=== PATIENT | male | born 1985 | race Caucasian/White ===

== ENCOUNTER 2018-07-25 11:55 | Emergency (ER) | payer OTHER ==
--- NOTE | 2018-07-25 12:24 | C.PDOC ---
History Of Present Illness 32 y/o male presents to the ED stating I feel like Im choking since this morning. Patient reports he ate a cookie and eggs this morning for breakfast. Approximately 1 hour later he developed the choking sensation and felt like so mething was coming back up similar to episodes of reflux. He denies any vomiting or fever. Patient then touched his chest and developed palpitations, he reports my heart started racing. He did not take any medications prior to arrival. Patient denies any known PMHx. Denies any chest pain, dizziness, diaphoresis, or other complaints. <Xiomara Rivers - Last Filed: 07/25/18 12:58> History Per: Patient History/Exam Limitations: no limitations Onset/Duration Of Symptoms: Hrs Current Symptoms Are (Timing): Still Present <Xiomara Rivers - Last Filed: 07/25/18 12:58> <Severo Reed - Last Filed: 07/25/18 14:55> Time Seen by Provider: 07/25/18 12:17 Chief Complaint (Nursing): Palpitations Past Medical History Reviewed: Historical Data, Nursing Documentation, Vital Signs Vital Signs: Last Vital Signs Temp 97.5 F L 07/25/18 12:14 Pulse 114 H 07/25/18 12:14 Resp 26 H 07/25/18 12:14 BP 153/77 H 07/25/18 12:14 Pulse Ox 100 07/25/18 12:14 - Medical History PMH: No Chronic Diseases Family History: States: No Known Family Hx - Social History Hx Alcohol Use: No Hx Substance Use: Yes (smokes marijuana) - Immunization History Hx Tetanus Toxoid Vaccination: No Hx Influenza Vaccination: No Hx Pneumococcal Vaccination: No <Xiomara Rivers - Last Filed: 07/25/18 12:58> Vital Signs: Last Vital Signs Temp 97.5 F L 07/25/18 12:14 Pulse 88 07/25/18 14:47 Resp 16 07/25/18 14:47 BP 111/72 07/25/18 14:47 Pulse Ox 100 07/25/18 14:47 <Severo Reed - Last Filed: 07/25/18 14:55> Review Of Systems Constitutional: Negative for: Fever, Chills Eyes: Negative for: Vision Change ENT: Positive for: Other (Throat: choking sensation, "feels like something is coming up") Cardiovascular: Positive for: Palpitations. Negative for: Chest Pain Respiratory: Negative for: Cough, Shortness of Breath Gastrointestinal: Negative for: Nausea, Vomiting, Abdominal Pain, Diarrhea Musculoskeletal: Negative for: Neck Pain, Back Pain Neurological: Negative for: Weakness, Dizziness <Xiomara Rivers - Last Filed: 07/25/18 12:58> Physical Exam - Physical Exam Appears: Non-toxic, No Acute Distress, Other (Appears anxious) Skin: Normal Color, Warm, Dry Head: Atraumatic, Normacephalic Eye(s): bilateral: Normal Inspection, PERRL, EOMI Oral Mucosa: Moist Throat: Normal, No Erythema, No Drooling, Other (Patent airway, uvula midline) Neck: Normal ROM, Supple Chest: Symmetrical, No Deformity, No Tenderness Cardiovascular: Rhythm Regular (Tachycardic) Respiratory: Normal Breath Sounds, No Accessory Muscle Use, No Rales, No Rhonchi, No Wheezing, Other (NARD) Gastrointestinal/Abdominal: Soft, No Tenderness, No Distention Extremity: Bilateral: Atraumatic, Normal Color And Temperature, Normal ROM Pulses: Left Radial: Normal, Right Radial: Normal Neurological/Psych: Oriented x3, Normal Speech Gait: Steady <Xiomara Rivers Last Filed: 07/25/18 12:58> ED Course And Treatment - Laboratory Results Result Diagrams: 07/25/18 12:31 07/25/18 12:31 ECG: Interpreted By Me, Viewed By Me ECG Rhythm: Sinus Tachycardia Rate From EC (bpm) O2 Sat by Pulse Oximetry: 100 (RA) Pulse Ox Interpretation: Normal - Radiology CXR: Interpreted by Me (NEGATIVE) <Xiomara Rivers - Last Filed: 07/25/18 12:58> - Laboratory Results Result Diagrams: 07/25/18 12:31 07/25/18 12:31 <Severo Reed - Last Filed: 07/25/18 14:55> Progress - Re-Evaluation Re-evaluation Note: 07/25/18 12:58 RN STATES PT ADMITS TO MARIJUANA USE, STATES LAST USE 2 WKS AGO. 07/25/18 12:59 +SWALLOW SCREEN WO DIFF - Data Reviewed Data Reviewed: Lab, Diagnostic imaging, EKG, Old records <Xiomara Rivers - Last Filed: 07/25/18 12:58> Medical Decision Making Medical Decision Making: Initial Plan: --EKG --Blood work with trop and dimer --Chest x-ray --Maalox 30 ml PO --Viscous lido 15 ml PO --Pepcid 20 mg IV --Pending swallow screen <Xiomara Rivers - Last Filed: 07/25/18 12:58> Disposition - Disposition Disposition Time: 13:00 <Xiomara Rivers - Last Filed: 07/25/18 12:58> Counseled Patient/Family Regarding: Studies Performed, Diagnosis, Need For Followup, Rx Given - Disposition Disposition Time: 14:54 <Severo Reed - Last Filed: 07/25/18 14:55> - Disposition Referrals: [facility] [Outside] Disposition: HOME/ ROUTINE Condition: STABLE Additional Instructions: follow up with your doctor or medical clinic within 2 days call to make an appointment take medications as prescribed return to ER if symptoms worsens or progress Prescriptions: Famotidine [Pepcid] 20 mg PO BID #20 tab Instructions: Palpitations (DC) Forms: [employer] (Turkmen), General Discharge Instructions, Work Excuse - Clinical Impression Clinical Impression: Choking sensation, Palpitations, Anxiety - Scribe Statement The provider has reviewed the documentation as recorded by the Keiry Irving Provider Attestation: All medical record entries made by the Jamesibrudy were at my direction and persona lly dictated by me. I have reviewed the chart and agree that the record accurately reflects my personal performance of the history, physical exam, medical decision making, and the department course for this patient. I have also personally directed, reviewed, and agree with the discharge instructions and disposition. <SilvestreXiomara - Last Filed: 07/25/18 12:58> Physician Patient Turnover Patient Signed Over To: Severo Reed Handoff Comments: FU LABS, DISPO <SilvestreXiomara - Last Filed: 07/25/18 12:58> Addendum Addendum: 07/25/18 14:52 Received patient in s/o. Patient passed swallowing evaluation. Oropharynx is clear, no palpable of grossly noticeable visual defecit. Repeat pulse is 74 bpm, nrm bp. Will discharge patient to follow up with pmd within 2 days. Patient states understanding. <Severo Reed - Last Filed: 07/25/18 14:55>
[2018-07-25] MEDS ORDERED: Aluminum Hydroxide/Magnesium Hydroxide Susp (30 mL) PO ONE (12:26)
[2018-07-25 12:36] LABS: BASO # 0.1 K/uL (0.0-0.2); BASO % 0.9 % (0.0-2.0); EOS # 0.1 K/uL (0.0-0.7); EOS % 1.4 % (0.0-4.0); HEMOGLOBIN 12.5 g/dL (12.0-18.0); LYMPH # 2.3 K/uL (1.0-4.3); LYMPH % 32.7 % (20.0-40.0); MEAN CELL VOLUME 85.5 fL (80.0-94.0); MEAN CORPUSCULAR HEMOGLOBIN 28.6 pg (27.0-31.0); MEAN CORPUSCULAR HGB CONC 33.4 g/dL (33.0-37.0); MONO # 0.6 K/uL (0.0-0.8); RBC 4.39 Mil/uL (4.40-5.90); RED CELL DISTRIBUTION WIDTH 13.4 % (11.5-14.5)
[2018-07-25 12:39] VITALS: O2SAT 100
[2018-07-25 12:47] LABS: ALB/GLOB RATIO 1.4 (1.0-2.1); ALBUMIN 4.4 g/dL (3.5-5.0); ALT/SGPT 40 U/L (21-72); AST/SGOT 35 U/L (17-59); BLOOD UREA NITROGEN 11 mg/dL (9-20); CALCIUM 9.1 mg/dl (8.6-10.4); GFR NON-AFRICAN AMERICAN > 60
[2018-07-25] MEDS ORDERED: Aluminum Hydroxide/Magnesium Hydroxide Susp (30 mL) ONE (12:52)
--- NOTE | 2018-07-25 13:17 | RAD ---
Date of service: 07/25/2018 HISTORY: chest pain COMPARISON: No prior. TECHNIQUE: Chest PA and lateral FINDINGS: LUNGS: No active pulmonary disease. PLEURA: No significant pleural effusion identified. No pneumothorax apparent. CARDIOVASCULAR: No aortic atherosclerotic calcification present. Normal cardiac size. No pulmonary vascular congestion. OSSEOUS STRUCTURES: No significant abnormalities. VISUALIZED UPPER ABDOMEN: Normal. OTHER FINDINGS: None. IMPRESSION: No active disease.
[2018-07-25 13:37] LABS: SQUAMOUS EPITHIAL < 1 /hpf (0-5); URINE BILIRUBIN NEGATIVE (NEGATIVE); URINE BLOOD 1+ (NEGATIVE); URINE CLARITY Clear (Clear); URINE COLOR Yellow (YELLOW); URINE GLUCOSE (UA) NORMAL (Normal); URINE HYALINE CAST 0-2 /lpf (0-2); URINE LEUKOCYTE ESTERASE NEG Leu/uL (Negative); URINE PROTEIN NEGATIVE (NEGATIVE); URINE UROBILINOGEN NORMAL mg/dL (0.2-1.0)
[2018-07-25 13:57] LABS: BARBITURATES, UR NEGATIVE (NEGATIVE); BENZODIAZEPINES, UR NEGATIVE (NEGATIVE); OPIATES, UR NEGATIVE (NEGATIVE); PHENCYCLIDINE, UR NEGATIVE (NEGATIVE)
[2018-07-25 14:48] VITALS: PULSE 88
[2018-07-25 15:49] VITALS: BP 110/76; RESP 18; TEMP 98
--- NOTE | 2018-07-26 20:02 | CARD ---
APPROVED REPORT Date of service: 07/25/2018 EKG Measurement Heart [id number] <Conclusion> Sinus tachycardia Possible Left atrial enlargement Borderline ECG
== END 2018-07-25 15:48 | disposition home or self-care (01) ==
LOC: C.ER 11:55
DX: F41.9 Anxiety disorder, unspecified (principal); R00.2 Palpitations; R09.89 Other specified symptoms and signs involving the circulatory and respiratory systems